=== PATIENT | male | born 1980 | race Two or more races ===

== ENCOUNTER 2022-05-30 15:07 | Emergency (ER) | payer SELFPAY ==
[~2022-05-30] VITALS: Ht 170.2 cm; Wt 78.0 kg
[2022-05-30 15:56] VITALS: BP 124/73
[2022-05-30] MEDS ORDERED: OXCA300T26 PO (16:18)
[2022-05-30] MEDS ORDERED: TOPI25TA84 PO (16:18)
[2022-05-30] MEDS ORDERED: TOPI50TA53 PO (16:18)
== END 2022-05-30 16:28 | disposition home or self-care (01) ==
LOC: ER 15:10
DX: R56.9 Unspecified convulsions (principal); Z76.0 Encounter for issue of repeat prescription; Z79.899 Other long term (current) drug therapy